=== PATIENT | female | born 1955 | race Caucasian/White ===

== ENCOUNTER → 2016-06-25 | Outpatient (CLI) | payer BC ==
[~2016-06-25] MED LIST: OMNIPAQUE 350 MG/ML, 100ML BOTTLE ONE
== END | disposition home or self-care (01) ==
LOC: CFH 07:48
PROVIDERS: ATTEND Internal Medicine Cardiovascular Disease
DX: I08.1 Rheumatic disorders of both mitral and tricuspid valves (principal); M51.37 Other intervertebral disc degeneration, lumbosacral region; I70.0 Atherosclerosis of aorta; I71.4 Abdominal aortic aneurysm, without rupture; I35.0 Nonrheumatic aortic (valve) stenosis
CPT/HCPCS: 71275; 74174; 93306; Q9967

== ENCOUNTER → 2017-07-13 | Outpatient (CLI) | payer BC | END | disposition home or self-care (01) | LOC: CVU 15:20 | PROVIDERS: ATTEND Internal Medicine Cardiovascular Disease | DX: I35.0 Nonrheumatic aortic (valve) stenosis (principal); I10 Essential (primary) hypertension; I71.4 Abdominal aortic aneurysm, without rupture; Z87.891 Personal history of nicotine dependence | CPT/HCPCS: 93306 ==

== ENCOUNTER → 2018-08-11 | Outpatient (CLI) | payer BC | END | disposition home or self-care (01) | LOC: CFH 12:17 | PROVIDERS: ATTEND Internal Medicine Cardiovascular Disease | DX: I08.8 Other rheumatic multiple valve diseases (principal); E11.9 Type 2 diabetes mellitus without complications; E78.5 Hyperlipidemia, unspecified; I10 Essential (primary) hypertension | CPT/HCPCS: 93306 ==